=== PATIENT | male | born 1985 | race Asian ===

== ENCOUNTER 2016-04-02 12:46 | Outpatient (CLI) | payer OTHER ==
[~2016-04-02 12:46] MED LIST: AMOX500C85 PO; BENZSOL4 OT; HYDR25TA60 PO; Z-PAK PO
[2016-04-02 13:00] LABS: PLATELET COUNT 273 K/uL (142-355)
[2016-04-02 13:50] LABS: POTASSIUM 3.5 mmol/L (3.6-5.2)
== END 2016-04-02 22:10 | disposition home or self-care (01) ==
LOC: LABW 12:46
PROVIDERS: Internal Medicine
DX: R53.83 Other fatigue (principal); I10 Essential (primary) hypertension; Z79.899 Other long term (current) drug therapy; Z51.81 Encounter for therapeutic drug level monitoring
CPT/HCPCS: 36415; 80053; 80061; 85027